=== PATIENT | female | born 1985 | race Hispanic/Latino ===

== ENCOUNTER 2020-06-18 08:22 | Day surgery (SDC) | payer OTHER ==
[~2020-06-18 08:22] MED LIST: CONCEPT OB PO; DICLOXACILL500 MG PO; LORTAB 5 OR; METROGEL VAG0.75 % VA; NO HOME MEDS; OMEPRAZOLE DR40 MG PO; ONDANSETRON4 MG PO; PRENATAL1 TAB PO; ZOFRAN ODT4 MG PO
[2020-06-18] MEDS ORDERED: PERCOCET 5/325M1 TAB PO (10:32)
[2020-06-18 11:38] VITALS: BP 114/71
== END 2020-06-18 12:59 | disposition home or self-care (01) | DRG 419 ==
LOC: ORM 08:22
PROVIDERS: ATTEND Surgery
PROC: 0FT44ZZ Resection of Gallbladder, Percutaneous Endoscopic Approach (ICD-10-PCS; principal; 2020-06-18)
DX: K80.10 Calculus of gallbladder with chronic cholecystitis without obstruction (principal); Z20.828 Contact with and (suspected) exposure to other viral communicable diseases
CPT/HCPCS: J0131; J2710